=== PATIENT | male | born 1980 | race Caucasian/White ===

== ENCOUNTER → 2024-06-15 | Outpatient (CLI) | payer MEDICAID, SELFPAY ==
--- NOTE | 2024-06-15 16:30 | XR_ITS ---
Examination: MRI lumbar spine without contrast Date and time of exam: June 15, 2024 1708 hrs. Indications: Middle and left-sided lower back pain radiating to left buttock region beginning 6 weeks ago after falling May 03, 2024 Technique: Multiple MRI axial and sagittal sections lumbar spine. Sagittal T2-weighted images, TR 3500, TE 118 T1 weighted transverse sections, TR 688 T8.5, T2-weighted sagittal sections T1 weighted sagittal sections TR 621, TE 30 T2 axial sections, TR 4, 190, TE 84. Findings: Adequate alignment thoracic vertebral bodies No thoracic vertebral body compression fracture No spondylolisthesis Diffuse lumbar disc desiccation Adequate marrow signal lumbar vertebral bodies L5-S1 4 mm central left paracentral disc bulge, displacing the left S1 nerve root, 8 mm left foraminal disc bulge producing moderate left L5 ganglionic compression L4-L5 2 mm central lumbar disc bulge L3-L4 2 mm central lumbar disc bulge with central posterior annular disc tear L2-L3 2 mm central lumbar disc bulge L1-2 no disc protrusion Impression: L5-S1 4 mm central lumbar disc bulge displacing the left S1 nerve root, 8 mm left foraminal disc bulge producing moderate left L5 ganglionic compression
== END | disposition home or self-care (01) ==
LOC: SMRI 06-16 07:16
PROVIDERS: PCP Family Medicine; Referring Provider Family Medicine; Visit Provider Family Medicine
DX: M51.379 Other intervertebral disc degeneration, lumbosacral region without mention of lumbar back pain or lower extremity pain (principal); G95.20 Unspecified cord compression
CPT/HCPCS: 72148